=== PATIENT | male | born 2000 | race Hispanic/Latino ===

== ENCOUNTER 2022-04-16 09:57 | Day surgery (SDC) | payer BC, SELFPAY ==
[2022-04-16 10:40] LABS: #Basophils 0.1 thou/uL (0.0-0.2); #Lymphocytes 2.2 thou/uL (1.20-3.40); #Neutrophils 12.2 thou/uL (1.40-6.50); %Basophils 0.5 % (0.0-1.0); %Eosinophils 0.3 % (0.0-10.0); %Lymphocytes 14.3 % (21.0-51.0); %Monocytes 6.3 % (0.0-10.0); %Neutrophils 78.6 % (42.0-75.0); Hemoglobin 16.5 g/dL (14.0-18.0); Mean Corpuscular HGB CONC 31.9 g/dL (32.0-36.0); Mean Corpuscular Hemoglobin 30.1 pg (27.0-31.0); Mean Corpuscular Volume 94.3 fl (78.0-98.0); Mean Platelet Volume 9.8 fL (7.4-10.4); Platelet Count 160 10x3/uL (130-400); Red Blood Cell (RBC) Count 5.49 mill/uL (4.70-6.10); White Blood Cell (WBC) Count 15.5 10x3/uL (4.8-10.8)
[2022-04-16 11:01] LABS: ALT (SGPT) 12 U/L (8-55); AST (SGOT) 15 U/L (5-34); Albumin 4.3 g/dL (3.5-5.0); Alkaline Phosphatase 54 U/L (40-110); Anion Gap 13 mmol/L (10-20); BUN (Urea Nitrogen) 11 mg/dL (8.9-20.6); Bilirubin, Total 1.8 mg/dL (0.2-1.2); Calc. Creatinine Clearance 0 mL/min (70-130); Calcium 9.5 mg/dL (7.8-10.44); Carbon Dioxide 27 mmol/L (22-29); Chloride 101 mmol/L (98-107); Estimated GFR 91; Globulin 2.9 g/dL (2.4-3.5); Glucose 107 mg/dL (70-105); Lipase 9 U/L (8-78); Potassium 4.5 mmol/L (3.5-5.1); Protein, Total 7.2 g/dL (6.0-8.3); Sodium 136 mmol/L (136-145)
[2022-04-16 12:43] LABS: Bacteria/HPF None Seen HPF (None Seen); Bilirubin Negative (Negative); Blood, Urine Negative (Negative); Clarity Clear (Clear); Glucose, Urine (Dipstick) Normal (Negative); Ketone, Urine Trace mg/dL (Negative); Leukocyte Negative Leu/uL (Negative); Nitrite Negative (Negative); Protein, Urine (Dipstick) 50 mg/dL (Neg-Trace); RBC/HPF 0-3 HPF (0-3); Specific Gravity, Urine 1.035 (1.002-1.036); Squamous Epithelial 0-3 HPF (0-3); Urobilinogen 3 mg/dL (Less than 2); WBC/HPF 0-3 HPF (0-3); pH, Urine 6.5 (5.0-9.0)
[2022-04-16] MEDS ORDERED: Piperacillin/Tazobactam 3.375 GM VIAL ONE ×2 (12:51→18:11)
[2022-04-16 14:20] LABS: SARS-CoV-2 NAA Rapid Test Not Detected (NotDetected)
[2022-04-16] MEDS ORDERED: Ketorolac Tromethamine 30 MG/ML VIAL ONE (18:11)
[2022-04-16] MEDS ORDERED: Sodium Chloride 0.9% 100 ML ONE (18:12)
[2022-04-16] MEDS ORDERED: Bupivacaine HCl 0.5%/Epinephrine 1:200,000/PF 30 ml Vial ONE (18:13)
[2022-04-16] MEDS ORDERED: Fentanyl 250 MCG/5 ML VIAL ONE (18:19)
[2022-04-16] MEDS ORDERED: Dexmedetomidine 200 MCG/2 ML VIAL ONE (18:20)
[2022-04-16] MEDS ORDERED: SUGAMMADEX SODIUM 200 MG/2 ML VIAL ONE (18:20)
[2022-04-16] MEDS ORDERED: Lidocaine 1% PF 5 ML VIAL ONE (18:32)
[2022-04-16] MEDS ORDERED: Dexamethasone 20 MG/5 ML VIAL ONE (18:32)
[2022-04-16] MEDS ORDERED: Ondansetron PF 4 MG/2 ML Vial ONE (18:32)
[2022-04-16] MEDS ORDERED: Rocuronium Bromide 10 MG/ML (10ML VIAL) ONE (18:32)
[2022-04-16] MEDS ORDERED: PROPOFOL 200 MG/20 ML VIAL ONE (18:32)
== END 2022-04-16 20:55 | disposition home or self-care (01) ==
LOC: ERS 09:57 → SDC/OP 14:23
PROVIDERS: ATTEND Specialist
PROC: 0DTJ4ZZ Resection of Appendix, Percutaneous Endoscopic Approach (ICD-10-PCS; principal; 2022-04-16)
DX: K35.80 Unspecified acute appendicitis (principal); J45.909 Unspecified asthma, uncomplicated; Z20.822 Contact with and (suspected) exposure to COVID-19
CPT/HCPCS: 36415; 74177; 80053; 81003; 81015; 83690; 85025; 88304; 96365; A4649; C1713; J1100; J1885; J2405; J2543; J2704; J3010; J3490; U0002